=== PATIENT | female | born 1975 | race Caucasian/White ===

== ENCOUNTER → 2021-05-23 | Day surgery (SDC) | payer OTHER ==
[~2021-05-23] VITALS: Ht 167.6 cm; Wt 90.3 kg
[~2021-05-23] MED LIST: CALCIUM PO; CARAFATE S500 MG/TSP PO; OMEPRAZOLE40 MG PO; ZINC PO
[2021-05-23 07:52] LABS: HCG (URINE) SCREEN NEGATIVE (NEGATIVE)
[2021-05-23 08:25] LABS: HCT 37.5 % (37.0-47.0); HGB 12.1 g/dl (12.5-16.0); MCH 28.1 pg (25.0-31.0); MCHC 32.3 g/dL (32.0-36.0); MCV 87.2 fL (78.0-100.0); RBC 4.3 M/uL (4.20-5.40); RDW 14.3 % (11.5-14.0); WBC 6.9 K/uL (4.0-10.5)
[2021-05-23 08:40] LABS: ALBUMIN 3.3 g/dL (3.4-5.0); BILIRUBIN - TOTAL 0.3 mg/dL (0.2-1.0); BUN/CREAT RATIO (CALC) 17.2 RATIO; CREATININE 0.64 mg/dL (0.51-0.95); GLOBULIN (CALCULATION) 3.5 g/dL; TOTAL PROTEIN 6.8 g/dL (6.4-8.2)
== END | disposition home or self-care (01) ==
LOC: FAS 07:35
PROVIDERS: Surgery
DX: K21.00 Gastro-esophageal reflux disease with esophagitis, without bleeding (principal); K22.70 Barrett's esophagus without dysplasia; K44.9 Diaphragmatic hernia without obstruction or gangrene; K29.50 Unspecified chronic gastritis without bleeding
CPT/HCPCS: 36415; 80053; 84703; J2250; J2704; J7120

== ENCOUNTER → 2021-07-18 | Day surgery (SDC) | payer OTHER ==
[~2021-07-18] VITALS: Ht 167.6 cm; Wt 90.3 kg
[2021-07-18 08:43] LABS: HCG (URINE) SCREEN NEGATIVE (NEGATIVE)
== END | disposition home or self-care (01) ==
LOC: FAS 08:01
PROVIDERS: Anesthesiology
DX: K22.2 Esophageal obstruction (principal); K21.9 Gastro-esophageal reflux disease without esophagitis
CPT/HCPCS: 84703; J2250; J2704; J7120

== ENCOUNTER → 2021-08-15 | Day surgery (SDC) | payer OTHER ==
[~2021-08-15] VITALS: Ht 167.6 cm; Wt 90.3 kg
[2021-08-15 08:29] LABS: HCG (URINE) SCREEN NEGATIVE (NEGATIVE)
== END | disposition home or self-care (01) ==
LOC: FAS 08:11
PROVIDERS: Surgery
DX: K22.2 Esophageal obstruction (principal); R12 Heartburn; R14.2 Eructation
CPT/HCPCS: 84703; J2250; J2704; J7120

== ENCOUNTER → 2021-11-25 | Day surgery (SDC) | payer OTHER ==
[~2021-11-25] VITALS: Ht 167.6 cm; Wt 90.3 kg
[2021-11-25 10:27] LABS: HCG (URINE) SCREEN NEGATIVE (NEGATIVE)
[2021-11-25 11:05] LABS: HCT 36.2 % (37.0-47.0); HGB 11.8 g/dl (12.5-16.0); MCH 28.9 pg (25.0-31.0); MCHC 32.6 g/dL (32.0-36.0); MCV 88.5 fL (78.0-100.0); MPV 11.1 fL (6.0-9.5); RBC 4.09 M/uL (4.20-5.40); RDW 13.4 % (11.5-14.0); WBC 5.9 K/uL (4.0-10.5)
[2021-11-25 11:10] LABS: BILIRUBIN - TOTAL 0.4 mg/dL (0.2-1.0); BUN/CREAT RATIO (CALC) 14.5 RATIO; CREATININE 0.69 mg/dL (0.51-0.95); GLOBULIN (CALCULATION) 3.3 g/dL; POTASSIUM 3.9 mmol/L (3.5-5.1); TOTAL PROTEIN 6.3 g/dL (6.4-8.2)
== END | disposition home or self-care (01) ==
LOC: FAS 09:58
PROVIDERS: Surgery
DX: K22.2 Esophageal obstruction (principal); K22.10 Ulcer of esophagus without bleeding; Z79.899 Other long term (current) drug therapy
CPT/HCPCS: 36415; 80053; 84703; C1726; J2250; J2704; J7120

== ENCOUNTER → 2022-01-15 | Day surgery (SDC) | payer OTHER ==
[~2022-01-15] VITALS: Ht 167.6 cm; Wt 90.3 kg
[2022-01-15 10:32] LABS: HCG (URINE) SCREEN NEGATIVE (NEGATIVE)
[2022-01-15 10:40] LABS: HCT 36.7 % (37.0-47.0); HGB 12.1 g/dl (12.5-16.0); MCH 29.4 pg (25.0-31.0); MCV 89.3 fL (78.0-100.0); MPV 10.9 fL (6.0-9.5); RBC 4.11 M/uL (4.20-5.40); RDW 12.4 % (11.5-14.0); WBC 5.8 K/uL (4.0-10.5)
[2022-01-15 11:13] LABS: ALBUMIN 3.4 g/dL (3.4-5.0); BILIRUBIN - TOTAL 0.4 mg/dL (0.2-1.0); BUN/CREAT RATIO (CALC) 10.6 RATIO; CREATININE 0.66 mg/dL (0.51-0.95); GLOBULIN (CALCULATION) 3.1 g/dL; POTASSIUM 3.9 mmol/L (3.5-5.1); TOTAL PROTEIN 6.5 g/dL (6.4-8.2)
== END | disposition home or self-care (01) ==
LOC: FAS 10:07
PROVIDERS: Surgery
DX: K22.2 Esophageal obstruction (principal); K21.00 Gastro-esophageal reflux disease with esophagitis, without bleeding
CPT/HCPCS: 36415; 80053; 82941; 84703; J2250; J2704; J7120

== ENCOUNTER → 2022-01-30 | Day surgery (SDC) | payer OTHER ==
[~2022-01-30] VITALS: Ht 167.6 cm; Wt 90.3 kg
[2022-01-30 09:39] LABS: HCG (URINE) SCREEN NEGATIVE (NEGATIVE)
== END | disposition home or self-care (01) ==
LOC: FAS 09:03
PROVIDERS: Surgery
DX: K22.2 Esophageal obstruction (principal); Z79.899 Other long term (current) drug therapy
CPT/HCPCS: 84703; J2250; J2704; J7120